=== PATIENT | female | born 2000 | race Caucasian/White ===

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

== ENCOUNTER 2021-06-30 17:55 | Emergency (ER) | payer BC ==
[~2021-06-30] VITALS: Ht 180.3 cm; Wt 84.1 kg
[2021-06-30 19:11] LABS: BASO % 0.1 % (0.0-2.0); EOS % 0.3 % (0.0-4.0); GRAN # 6.9 K/mm3 (1.4-6.5); GRAN % 70.4 % (42.2-75.2); HEMATOCRIT 38.3 % (35.0-45.0); HEMOGLOBIN 12.9 g/dl (12.0-15.0); LYMPH # 1.7 K/mm3 (1.2-3.4); LYMPH % 16.9 % (20.0-51.0); MEAN CELL VOLUME 78 fl (80.0-95.0); MEAN CORPUSCULAR HEMOGLOBIN 26 pg (26-32); MEAN CORPUSCULAR HGB CONC 34 g/dl (33.0-37.0); MEAN PLATELET VOLUME 9.3 fl (7.4-10.4); MONO # 1.2 K/mm3 (0.1-0.6); MONO % 12.1 % (1.7-9.3); PLATELET COUNT 179 K/mm3 (130-400); RED BLOOD COUNT 4.89 M/mm3 (4.10-5.30)
[2021-06-30 19:22] LABS: STREP SCREEN NEGATIVE
[2021-06-30 19:36] LABS: ALBUMIN 3.5 gm/dL (3.5-5.0); BILIRUBIN,TOTAL 0.3 mg/dL (0.2-1.2); CALCIUM 9.2 mg/dL (8.4-10.2); CREATININE, serum 0.81 mg/dL (0.57-1.11); POTASSIUM 3.5 mmol/L (3.5-4.5); TOTAL PROTEIN 8.2 gm/dL (6.2-8.1)
[2021-06-30] MEDS ORDERED: CLEOCIN HCL300 MG PO (22:02)
[2021-06-30 22:11] LABS: MONOSCREEN NEGATIVE
[2021-06-30 22:15] VITALS: BP 132/85; PULSE 85; TEMP 98.5
== END 2021-06-30 22:15 | disposition home or self-care (01) ==
LOC: COL.ER 17:55
PROVIDERS: Nurse Practitioner Family
DX: J03.90 Acute tonsillitis, unspecified (principal); Z98.890 Other specified postprocedural states; Z20.822 Contact with and (suspected) exposure to COVID-19
CPT/HCPCS: J1100; J1885; J7030; Q9967

== ENCOUNTER 2021-07-02 08:15 | Emergency (ER) | payer BC ==
[~2021-07-02] VITALS: Ht 180.3 cm; Wt 84.1 kg
[~2021-07-02 08:15] MED LIST changes: +CLEOCIN HCL300 MG PO
[2021-07-02] MEDS ORDERED: PREDNISONE50 MG PO (09:15)
[2021-07-02 09:27] VITALS: BP 129/77; PULSE 98; TEMP 98.9
== END 2021-07-02 09:27 | disposition home or self-care (01) ==
LOC: COL.ER 08:15
DX: J03.90 Acute tonsillitis, unspecified (principal); Z90.89 Acquired absence of other organs